=== PATIENT | female | born 1980 ===

== ENCOUNTER 2016-11-22 20:29 | Emergency (ER) | payer OTHER, BC ==
[2016-11-22 20:44] VITALS: BP 136/83; PULSE 102; RESP 18; TEMP 99.9; O2SAT 100
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
== END 2016-11-22 23:15 | disposition home or self-care (01) ==
LOC: H.ER 20:29
DX: M54.5 Low back pain (principal); V89.2XXA Person injured in unspecified motor-vehicle accident, traffic, initial encounter